=== PATIENT | male | born 1990 | race Caucasian/White ===

== ENCOUNTER 2020-12-08 19:38 | Emergency (ER) | payer OTHER, SELFPAY | END 2020-12-08 20:55 | disposition home or self-care (01) | LOC: NAV ERS 19:38 | DX: T52.0X1A Toxic effect of petroleum products, accidental (unintentional), initial encounter (principal); T22.60XA Corrosion of second degree of shoulder and upper limb, except wrist and hand, unspecified site, initial encounter; T24.601A Corrosion of second degree of unspecified site of right lower limb, except ankle and foot, initial encounter; T21.64XA Corrosion of second degree of lower back, initial encounter; T32.0 Corrosions involving less than 10% of body surface; I10 Essential (primary) hypertension; Z79.899 Other long term (current) drug therapy | CPT/HCPCS: 99283 ==